=== PATIENT | female | born 1970 | race Caucasian/White ===

== ENCOUNTER 2016-10-25 08:08 | Emergency (ER) | payer OTHER ==
--- NOTE | 2016-10-25 08:36 | ER Document Report ---
ED GI/ - General Mode of Arrival: Ambulatory Information source: Patient TRAVEL OUTSIDE OF THE [place] IN LAST 30 DAYS: No - HPI Patient complains to provider of: Abdominal pain Onset: Other - ~3 weeks ago Timing/Duration: Persistent, Worse Location: Epigastric, RUQ Associated symptoms: Nausea. denies: Diarrhea, Fever <ANDREE MCCANN - Last Filed: 10/25/16 08:44> <MALIKA GALVEZ - Last Filed: 10/25/16 11:49> - General Chief Complaint: Abdominal Pain Stated Complaint: ABDOMINAL PAIN Notes: Patient is a 46-year-old female presenting to the emergency Department come complaining of 3 weeks of progressively worsening abdominal pain. Patient states that it is predominantly in her right upper quadrant but radiates through her body into her back. Patient admits to nausea and reflux, but denies fever and vomiting. Patient's last bowel movement was yesterday. Patient states that she can't think of anything that exacerbates pain except for soda. Patient mentioned that yesterday she did a liver/gallbladder cleanse , which consisted of drinking Epsom salts, lemon juice, and then more Epsom salts. Patient claims that her pain improved during this cleanse. (ANDREE MCCANN) - Related Data Allergies/Adverse Reactions: Sulfa (Sulfonamide Antibiotics) Allergy (Severe, Verified 10/25/16 08:16) all over swelling,redness,blisters epinephrine [Epinephrine] Allergy (Verified 10/25/16 08:16) Shortness of Breath Past Medical History - General Information source: Patient - Social History Smoking Status: Current Every Day Smoker Chew tobacco use (# tins/day): No Frequency of alcohol use: None Drug Abuse: None Family History: CVA Patient has suicidal ideation: No Patient has homicidal ideation: No Pulmonary Medical History: Reports: Hx Pneumonia GI Medical History: Reports: Hx Gastroesophageal Reflux Disease Musculoskeltal Medical History: Reports Hx Arthritis Psychiatric Medical History: Reports: Hx Attention Deficit Hyperactivity Disorder Past Surgical History: Reports: Hx Appendectomy, Hx Breast Surgery, Hx Section, Hx Hysterectomy. Denies: Hx Cholecystectomy - Immunizations Hx Diphtheria, Pertussis, Tetanus Vaccination: No <ANDREE MCCANN - Last Filed: 10/25/16 08:44> Review of Systems - Review of Systems Constitutional: No symptoms reported EENT: No symptoms reported Cardiovascular: No symptoms reported Respiratory: No symptoms reported Gastrointestinal: See HPI, Abdominal pain - Radiates into back. Genitourinary: No symptoms reported Female Genitourinary: No symptoms reported Musculoskeletal: No symptoms reported Skin: No symptoms reported Hematologic/Lymphatic: No symptoms reported Neurological/Psychological: No symptoms reported -: Yes All other systems reviewed and negative <ANDREE MCCANN - Last Filed: 10/25/16 08:44> Physical Exam - General General appearance: Alert - HEENT Head: Normocephalic, Atraumatic Eyes: Normal Pupils: PERRL - Respiratory Respiratory status: No respiratory distress Chest status: Nontender Breath sounds: Normal Chest palpation: Normal - Cardiovascular Rhythm: Regular Heart sounds: Normal auscultation Murmur: No - Abdominal Distension: No distension Bowel sounds: Normal Tenderness: Tender - Epigastric and RUQ exquisitely tender to palpation. - Back Back: Normal, Nontender - Extremities General upper extremity: Normal inspection General lower extremity: Normal inspection - Neurological Neuro grossly intact: Yes Cognition: Normal [place] Coma Scale Eye Opening: Spontaneous [place] Coma Scale Verbal: Oriented [place] Coma Scale Motor: Obeys Commands Tar[place] Coma Scale Total: 15 Speech: Normal - Psychological Associated symptoms: Normal affect, Normal mood - Skin Skin Temperature: Warm Skin Moisture: Dry Skin Color: Normal <ANDREE MCCANN - Last Filed: 10/25/16 08:44> Course - Laboratory Result Diagrams: 10/25/16 08:53 10/25/16 08:53 - Diagnostic Test Radiology reviewed: Image reviewed - KUB shows nothing acute, there is quite a lot of stool in the large bowel. <MALIKA GALVEZ - Last Filed: 10/25/16 11:49> - Vital Signs Vital signs: Temp Pulse Resp BP Pulse Ox 97.7 F 80 18 151/102 H 98 10/25/16 08:16 10/25/16 08:16 10/25/16 08:16 10/25/16 08:16 10/25/16 08:16 (ANDREE MCCANN) (MALIKA GALVEZ) - Laboratory Laboratory results interpreted by me: 10/25/16 08:53 WBC 13.1 H Plt Count 556 H Seg Neutrophils % 82.0 H Lymphocytes % 12.1 L Absolute Neutrophils 10.7 H (MALIKA GALVEZ) Discharge <ANDREE MCCANN - Last Filed: 10/25/16 08:44> <MALIKA GALVEZ - Last Filed: 10/25/16 11:49> - Discharge Clinical Impression: Constipation due to opioid therapy Abdominal pain Qualifiers: Abdominal location: upper abdomen, unspecified Qualified Code(s): R10.10 - Upper abdominal pain, unspecified Condition: Stable Disposition: HOME, SELF-CARE Additional Instructions: Abdominal Pain: There are many causes of abdominal pain. Pain can mean a serious problem requiring surgery (such as appendicitis). It can also be an innocent problem that goes away on its own (such as a viral infection). Often, time must pass to determine the cause of pain. The physician does not feel that hospitalization is necessary, at present. Things may change within the next 24 hours. Call the doctor or come back for re- examination if any problems occur, such as: (1) Pain that becomes more severe, steady, or becomes concentrated in one specific area. Also, pain that is more severe with movement or coughing. (2) Vomiting that persists or becomes more frequent. (3) Blood in the vomitus, urine, or bowel movements. Blood in the stool may have a tarry or black appearance. (4) Shaking chills or fever greater than 100 degrees F. (5) The abdomen becomes more distended or swollen. (6) Bowel movements cease. (7) Failure to improve as expected. Constipation: Constipation is a common problem. Constipation is a common cause of abdominal pain, but sometimes causes no symptoms at all. Causes of constipation include certain medications, dehydration, diets, inactivity, and low-fiber intake. Avoid constipation by eating a diet high in fiber, fruits, and vegetables. Drink plenty of liquids. Get regular exercise. If possible, avoid constipating medicines like narcotic pain medication. Some vitamin tablets can cause constipation. Stool softeners may be needed for difficult cases. An excellent stool softener is Konsyl which is available at [employer] [employer] drug store. Just add a teaspoon to a glass of pineapple or orange juice daily or twice a day if needed. Laxatives are useful for occasional constipation. You should use them only when necessary. Too-frequent use can make your bowels dependent on them. Some over the counter laxatives available without prescription are: Milk of Magnesia, 1-2 tablespoons twice a day Dulcolax, 5 mg pill or 10 mg suppository. Citrate of Magnesia, 4-5 ounces a day for a day or two For acute constipation, Fleet's Enemas and Dulcolax suppositories are helpful. Chronic, senior living use of laxatives or enemas is not a good idea. Your bowel may become dependant on them. You do not need to have a bowel movement every day. Many people do fine with a bowel movement every three or four days. You should call your doctor or return for re-evaluation if you pass blood in the stool, or if you develop fever or increasing abdominal pain. TAKE THE MIRALAX TWICE DAILY. DRINK LOTS OF FLUIDS. STAY ACTIVE WALKING. TRY MAG CITRATE DAILY FOR A FEW DAYS TO HELP. IT MAY TAKE SEVERAL DAYS TO GET THE BOWELS MOVING. TRY TO REDUCE THE AMOUNT OF NARCOTIC YOUR ARE TAKING. FOLLOW UP WITH DR. CADET THIS WEEK IF NOT IMPROVING. RETURN TO THE EMERGENCY ROOM IF ANY NEW OR WORSENING SYMPTOMS. Referrals: JAZMIN CADET MD [Primary Care Provider] - Follow up as needed Scribe Attestation: 10/25/16 11:49 I personally performed the services described in the documentation, reviewed and edited the documentation which was dictated to the scribe in my presence, and it accurately records my words and actions. (MALIKA GALVEZ) Scribe Documentation - Scribe Written by Arsalan:: Andree Mccann 10/25/2016 0836 acting as scribe for :: Lico <ANDREE MCCANN - Last Filed: 10/25/16 08:44>
[2016-10-25] MEDS ORDERED: ONDANSETRON HCL INJ/PF 4 MG/2 ML SDV IV ONE (08:44)
[2016-10-25] MEDS ORDERED: MAG HYDROX/AL HYDROX/SIMETH SUSP 30 ML UDCUP PO ONE (08:44)
[2016-10-25] MEDS ORDERED: KETOROLAC TROMETHAMINE INJ/PF 30 MG/1 ML SDV IV ONE (08:44)
[2016-10-25] MEDS ORDERED: NORMAL SALINE 1000 ML 1,000 ML IV ONE (08:44)
[2016-10-25] MEDS ORDERED: LIDOCAINE 2% VISCOUS SOLN 20 ML UDCUP PO ONE (08:44)
[2016-10-25 09:03] LABS: ABSOLUTE EOSINOPHILS # (AUTO) 0.1 10^3/uL (0.0-0.6); ABSOLUTE LYMPHOCYTES (AUTO) 1.6 10^3/uL (0.5-4.7); ABSOLUTE MONOCYTES (AUTO) 0.7 10^3/uL (0.1-1.4); ABSOLUTE NEUT (AUTO) 10.7 10^3/uL (1.7-8.2); BASOPHILS % (AUTO) 0.2 % (0-2); EOSINOPHILS % (AUTO) 0.7 % (0-6); HEMOGLOBIN 14.1 g/dL (12.0-15.5); HGB HCT DIFFERENCE -0.7; LYMPHOCYTES % (AUTO) 12.1 % (13-45); MEAN CORPUSCULAR HEMOGLOBIN 29.8 pg (27.0-33.4); MEAN CORPUSCULAR HGB CONC 32.7 g/dL (32.0-36.0); MEAN CORPUSCULAR VOLUME 91 fl (80-97); RED BLOOD COUNT 4.73 10^6/uL (3.72-5.28); RED CELL DISTRIBUTION WIDTH 12.8 % (11.5-14.0); WHITE BLOOD COUNT 13.1 10^3/uL (4.0-10.5)
[2016-10-25 09:30] LABS: ALANINE AMINOTRANSFERASE 26 U/L (9-52); ALBUMIN 4.6 g/dL (3.5-5.0); ALKALINE PHOSPHATASE 93 U/L (38-126); ANION GAP 11 (5-19); ASPARTATE AMINO TRANSFERASE 21 U/L (14-36); BILIRUBIN,TOTAL 0.5 mg/dL (0.2-1.3); BLOOD UREA NITROGEN 10 mg/dL (7-20); CALCIUM 9.8 mg/dL (8.4-10.2); CARBON DIOXIDE 28 mmol/L (22-30); CHLORIDE 100 mmol/L (98-107); CREATININE RESULT 0.59 mg/dL (0.52-1.25); GLUCOSE 93 mg/dL (75-110); LIPASE 69.6 U/L (23-300); POTASSIUM 4.6 mmol/L (3.6-5.0); SODIUM 138.8 mmol/L (137-145); TOTAL PROTEIN 7.1 g/dL (6.3-8.2)
[2016-10-25] MEDS ORDERED: MAGNESIUM CITRATE 296 ML BOTTLE PO ONE (11:49)
[2016-10-25 12:14] VITALS: BP 123/71
== END 2016-10-25 12:14 | disposition home or self-care (01) ==
LOC: ER 08:08
DX: K59.03 Drug induced constipation (principal); T40.2X5A Adverse effect of other opioids, initial encounter; K21.9 Gastro-esophageal reflux disease without esophagitis; R10.13 Epigastric pain; R10.11 Right upper quadrant pain; R11.0 Nausea; F17.200 Nicotine dependence, unspecified, uncomplicated; Z88.2 Allergy status to sulfonamides; Z88.8 Allergy status to other drugs, medicaments and biological substances; Z90.49 Acquired absence of other specified parts of digestive tract; Z90.710 Acquired absence of both cervix and uterus
CPT/HCPCS: 99284; 96361; 96374; 96375; 36415; 83690; 85025; 80053; 74000; 76705; J3490 ×2; J1885; J2405; J7030

== ENCOUNTER 2018-02-24 14:47 | Emergency (ER) | payer OTHER ==
--- NOTE | 2018-02-24 16:18 | ER Document Report ---
ED Medical Screen (RME) - General Chief Complaint: Chest Pain > 30 Stated Complaint: CHEST PAIN Time Seen by Provider: 02/24/18 16:03 Notes: RAPID MEDICAL EVALUATION DISCLOSURE I have seen this patient as part of a Rapid Medical Evaluation and, if applicable, placed any initially appropriate orders. The patient will be seen and fully evaluated, including a full history and physical exam, by a provider ( in Main ED or Fast Track) when a room becomes available. 39-year-old female here with complaints of midsternal chest burning radiating up to the left shoulder as well as shortness of breath diaphoresis lightheadedness and nausea ongoing for the past 2 weeks progressively worsening and increasing in frequency. The symptoms are worse "whenever I should be on" but not worse with breathing or exertion. She has been taking a great amount of NSAIDs including aspirin ibuprofen BC/Goody powder with good relief of the symptoms until it wears off. Today she has had numerous amounts of these medications. She was told she has acid reflux but does not take any acid reflux medication because "I do not believe in it". She was sent here by the urgent care for further evaluation. EXAM CTAB RRR TRAVEL OUTSIDE OF THE [place] IN LAST 30 DAYS: No - Related Data Allergies/Adverse Reactions: Sulfa (Sulfonamide Antibiotics) Allergy (Severe, Verified 02/24/18 15:06) all over swelling,redness,blisters epinephrine [Epinephrine] Allergy (Verified 02/24/18 15:06) Shortness of Breath Past Medical History - Past Medical History Cardiac Medical History: Denies: Hx Coronary Artery Disease, Hx Heart Attack, Hx Hypertension Pulmonary Medical History: Reports: Hx Pneumonia Denies: Hx Asthma, Hx Bronchitis, Hx COPD Neurological Medical History: Denies: Hx Cerebrovascular Accident, Hx Seizures Renal/ Medical History: Denies: Hx Peritoneal Dialysis GI Medical History: Reports: Hx Gastroesophageal Reflux Disease. Denies: Hx Hepatitis, Hx Hiatal Hernia, Hx Ulcer Musculoskeltal Medical History: Reports Hx Arthritis Psychiatric Medical History: Reports: Hx Attention Deficit Hyperactivity Disorder Infectious Medical History: Denies: Hx Hepatitis Past Surgical History: Reports: Hx Appendectomy, Hx Breast Surgery, Hx Section, Hx Hysterectomy. Denies: Hx Cholecystectomy, Hx Mastectomy, Hx Open Heart Surgery, Hx Pacemaker - Immunizations Hx Diphtheria, Pertussis, Tetanus Vaccination: No Physical Exam - Vital signs Vitals: Temp Pulse Resp BP Pulse Ox 99.1 F 75 18 165/98 H 97 02/24/18 15:11 02/24/18 15:11 02/24/18 15:11 02/24/18 15:11 02/24/18 15:11 Course - Vital Signs Vital signs: Temp Pulse Resp BP Pulse Ox 99.1 F 75 18 165/98 H 97 02/24/18 15:11 02/24/18 15:11 02/24/18 15:11 02/24/18 15:11 02/24/18 15:11
[2018-02-24 16:57] LABS: APPEARANCE,URINE CLEAR; BILIRUBIN,URINE NEGATIVE (NEGATIVE); COLOR,URINE YELLOW; GLUCOSE, URINE NEGATIVE (NEGATIVE); KETONES,URINE NEGATIVE (NEGATIVE); LEUKOCYTE ESTERASE,URINE NEGATIVE (NEGATIVE); NITRITE,URINE NEGATIVE (NEGATIVE); PROTEIN,URINE NEGATIVE (NEGATIVE); URINE SPECIFIC GRAVITY 1.009; UROBILINOGEN,URINE NEGATIVE mg/dL (<2.0)
--- NOTE | 2018-02-24 17:07 | RADIOLOGY REPORT (SQ) ---
EXAM DESCRIPTION: CHEST 2 VIEWS COMPLETED DATE/TIME: 02/24/2018 4:59 pm REASON FOR STUDY: CP SOB COMPARISON: 04/26/2011 EXAM PARAMETERS: NUMBER OF VIEWS: two views TECHNIQUE: Digital Frontal and Lateral radiographic views of the chest acquired. RADIATION DOSE: NA LIMITATIONS: none FINDINGS: LUNGS AND PLEURA: No opacities, masses or pneumothorax. No pleural effusion. MEDIASTINUM AND HILAR STRUCTURES: No masses or contour abnormalities. HEART AND VASCULAR STRUCTURES: Heart normal size. No evidence for failure. BONES: No acute findings. HARDWARE: None in the chest. OTHER: No other significant finding. IMPRESSION: NO ACUTE RADIOGRAPHIC FINDING IN THE CHEST. NO SIGNIFICANT CHANGE FROM PRIOR STUDY. TECHNICAL DOCUMENTATION: JOB ID: [id number] [employer]- All Rights Reserved Reading location - IP/workstation name: [email or web address]
[2018-02-24 17:25] LABS: NT PRO BNP 49 pg/mL (<125)
[2018-02-24 17:30] LABS: TROPONIN I < 0.012 ng/mL
[2018-02-24 17:37] LABS: ALANINE AMINOTRANSFERASE 19 U/L (9-52); ALBUMIN 4.4 g/dL (3.5-5.0); ALKALINE PHOSPHATASE 81 U/L (38-126); ANION GAP 12 (5-19); ASPARTATE AMINO TRANSFERASE 25 U/L (14-36); BLOOD UREA NITROGEN 9 mg/dL (7-20); CALCIUM 9.8 mg/dL (8.4-10.2); CARBON DIOXIDE 30 mmol/L (22-30); CHLORIDE 102 mmol/L (98-107); GLUCOSE 93 mg/dL (75-110); LIPASE 121.2 U/L (23-300); POTASSIUM 3.8 mmol/L (3.6-5.0); SALICYLATE 2.6 mg/dL (2.0-20.0); SODIUM 144.4 mmol/L (137-145); TOTAL PROTEIN 7.9 g/dL (6.3-8.2)
[2018-02-24 17:39] LABS: BILIRUBIN,DIRECT UNABLE TO CALCULATE mg/dL (0.0-0.4); BILIRUBIN,TOTAL < 0.1 mg/dL (0.2-1.3)
[2018-02-24] MEDS ORDERED: ONDANSETRON 4 MG TAB.RAPDIS PO ONE (19:09)
[2018-02-24] MEDS ORDERED: SUCRALFATE 1 GM TABLET PO ONE (19:40)
[2018-02-24] MEDS ORDERED: FAMOTIDINE 20 MG TABLET PO ONE (19:40)
--- NOTE | 2018-02-24 19:46 | ER Document Report ---
ED General - General Chief Complaint: Chest Pain > 30 Stated Complaint: CHEST PAIN Time Seen by Provider: 02/24/18 16:03 Notes: Patient is a 47-year-old female comes emergency department for chief complaint of pain in her upper abdomen and up into her chest, she states it is a burning sensation, symptoms have been present for 2 weeks, she states that when she takes a teaspoon of sodium bicarbonate she feels temporarily better but then it returns. She reports nausea but denies vomiting. She tried taking stool softeners and switching to a clear fluid diet but this did not resolve her symptoms. She denies black stools, shortness of breath, fever. She admits to taking ibuprofen and aspirin regularly and daily. She has been diagnosed with GERD in the past from an endoscopy. She has had an appendectomy, hysterectomy. TRAVEL OUTSIDE OF THE [place] IN LAST 30 DAYS: No - Related Data Allergies/Adverse Reactions: Sulfa (Sulfonamide Antibiotics) Allergy (Severe, Verified 02/24/18 15:06) all over swelling,redness,blisters epinephrine [Epinephrine] Allergy (Verified 02/24/18 15:06) Shortness of Breath Past Medical History - General Information source: Patient - Social History Smoking Status: Current Every Day Smoker Chew tobacco use (# tins/day): No Smoking Education Provided: Yes - <3 min Frequency of alcohol use: None Drug Abuse: None Lives with: Alone Family History: CVA Patient has suicidal ideation: No Patient has homicidal ideation: No - Past Medical History Cardiac Medical History: Denies: Hx Coronary Artery Disease, Hx Heart Attack, Hx Hypertension Pulmonary Medical History: Reports: Hx Pneumonia Denies: Hx Asthma, Hx Bronchitis, Hx COPD Neurological Medical History: Denies: Hx Cerebrovascular Accident, Hx Seizures Renal/ Medical History: Denies: Hx Peritoneal Dialysis GI Medical History: Reports: Hx Gastroesophageal Reflux Disease. Denies: Hx Hepatitis, Hx Hiatal Hernia, Hx Ulcer Musculoskeltal Medical History: Reports Hx Arthritis Psychiatric Medical History: Reports: Hx Attention Deficit Hyperactivity Disorder Infectious Medical History: Denies: Hx Hepatitis Past Surgical History: Reports: Hx Appendectomy, Hx Breast Surgery, Hx Section, Hx Hysterectomy. Denies: Hx Cholecystectomy, Hx Mastectomy, Hx Open Heart Surgery, Hx Pacemaker - Immunizations Hx Diphtheria, Pertussis, Tetanus Vaccination: No Review of Systems - Review of Systems Constitutional: No symptoms reported EENT: No symptoms reported Cardiovascular: See HPI Respiratory: No symptoms reported Gastrointestinal: See HPI Genitourinary: No symptoms reported Female Genitourinary: No symptoms reported Musculoskeletal: No symptoms reported Skin: No symptoms reported Hematologic/Lymphatic: No symptoms reported Neurological/Psychological: No symptoms reported Physical Exam - Vital signs Vitals: Temp Pulse Resp BP Pulse Ox 99.1 F 75 18 165/98 H 97 02/24/18 15:11 02/24/18 15:11 02/24/18 15:11 02/24/18 15:11 02/24/18 15:11 Interpretation: Normal - General General appearance: Appears well In distress: None - HEENT Head: Normocephalic, Atraumatic Eyes: Normal Conjunctiva: Normal Extraocular movements intact: Yes Eyelashes: Normal Pupils: PERRL Mouth/Lips: Normal Mucous membranes: Normal Pharynx: Normal Neck: Normal - Respiratory Respiratory status: No respiratory distress Chest status: Nontender Breath sounds: Normal. No: Decreased air movement, Wheezing Chest palpation: Normal - Cardiovascular Rhythm: Regular. No: Tachycardia Heart sounds: Normal auscultation, S1 appreciated, S2 appreciated Murmur: No - Abdominal Inspection: Normal Distension: No distension Bowel sounds: Normal Tenderness: Tender - mild generalized tenderness, non-specific, no rigidity or guarding Organomegaly: No organomegaly - Back Back: Normal, Nontender - Extremities General upper extremity: Normal inspection, Nontender, Normal color, Normal ROM , Normal temperature General lower extremity: Normal inspection, Nontender, Normal color, Normal ROM , Normal temperature, Normal weight bearing. No: Bull's sign - Neurological Neuro grossly intact: Yes Cognition: Normal Orientation: AAOx4 [place] Coma Scale Eye Opening: Spontaneous [place] Coma Scale Verbal: Oriented [place] Coma Scale Motor: Obeys Commands [place] Coma Scale Total: 15 Speech: Normal Cranial nerves: Normal Cerebellar coordination: Normal Motor strength normal: LUE, RUE, LLE, RLE Additional motor exam normals: Equal medical imaging technologist Sensory: Normal - Psychological Associated symptoms: Normal affect, Normal mood - Skin Skin Temperature: Warm Skin Moisture: Dry Skin Color: Normal Course - Re-evaluation Re-evalutation: EKG shows sinus rhythm, no T-wave inversions or ST segment changes in consecutive leads, no significant changes noted compared to prior. Chest x-ray unremarkable. Patient reporting persistent symptoms suspicious for upper abdominal inflammation including burning symptoms, history of the same, frequent NSAID use, smoking, and improvement with baking soda use. Patient ready to leave. CBC unfortunately did not result because of error with the tube, however remaining workup was obtained including chemistry, lipase, cardiac enzyme, and all of these are unremarkable. Low suspicion of ACS or acute abdomen based on her evaluation and presentation. Patient will be discharged at this time, pre-medicated for her symptoms, I discussed recommendations, follow up, return precautions. Patient states understanding and agreement. - Vital Signs Vital signs: Temp Pulse Resp BP Pulse Ox 97.5 F 68 16 175/99 H 100 02/24/18 20:02 02/24/18 20:02 02/24/18 20:02 02/24/18 20:02 02/24/18 20:02 - Laboratory Result Diagrams: 02/24/18 16:37 02/24/18 16:37 Laboratory results interpreted by me: 02/24/18 16:37 Total Bilirubin < 0.1 L Discharge - Discharge Clinical Impression: Upper abdominal pain Chest pain Qualifiers: Chest pain type: unspecified Qualified Code(s): R07.9 - Chest pain, unspecified Condition: Stable Disposition: HOME, SELF-CARE Additional Instructions: Your laboratory workup does not show any concerning abnormalities. Your symptoms, medications, and examination are most consistent with inflammation in your upper gastrointestinal tract. I recommend the famotidine and Carafate for the next 5 days. Stop ibuprofen and aspirin; avoid alcohol, smoking, caffeine, or other NSAIDs. Start with bland foods and progress (avoid spicy foods). If symptoms continue I recommend primary care follow-up and possible testing for H. pylori bacteria and possible endoscopy. Return if you worsen including vomiting, vomiting blood, black stools, severe pain, or any other concerning or worsening symptoms. Prescriptions: Famotidine [Pepcid 20 mg Tablet] 20 mg PO BID #20 tablet Sucralfate [Carafate 1 gm Tablet] 1 gm PO QID #20 tablet Forms: Return to Work Referrals: JAZMIN CADET MD [Primary Care Provider] - Follow up as needed
[2018-02-24 20:05] VITALS: BP 175/99
--- NOTE | 2018-02-24 20:38 | EKG REPORT ---
SEVERITY:- ABNORMAL ECG - ECTOPIC ATRIAL RHYTHM CONSIDER LEFT VENTRICULAR HYPERTROPHY : Confirmed by: Abundio Pelayo MD 24-Feb-2018 20:37:59
== END 2018-02-24 20:06 | disposition home or self-care (01) ==
LOC: ER 14:47
DX: R07.9 Chest pain, unspecified (principal); R10.10 Upper abdominal pain, unspecified; K21.9 Gastro-esophageal reflux disease without esophagitis; Z88.2 Allergy status to sulfonamides; Z79.82 Long term (current) use of aspirin; Z90.710 Acquired absence of both cervix and uterus
CPT/HCPCS: 93005; 99285; 36415; 83690; 80307; 80053; 81001; 84484; 83880; 71046; 93010; S0119